=== PATIENT | male | born 1965 | race Caucasian/White ===

== ENCOUNTER 2023-09-11 11:23 | Emergency (ER) | payer OTHER ==
[~2023-09-11] VITALS: Ht 180.3 cm; Wt 83.9 kg
[~2023-09-11 11:23] MED LIST: CLINDAMYCIN HC300 MG PO
[2023-09-11] MEDS ORDERED: CEPHALEXIN500 M1 PO (13:49)
[2023-09-11] MEDS ORDERED: CEPHALEXIN 500 MG CAP PO ONE (13:50)
[2023-09-11] MEDS ORDERED: Acetaminophen/Hydrocodone 5 MG/325 MG TABLET PO ONE (13:50)
== END 2023-09-11 13:57 | disposition home or self-care (01) ==
LOC: ED 11:23
DX: S60.512A Abrasion of left hand, initial encounter (principal); S61.201A Unspecified open wound of left index finger without damage to nail, initial encounter; R60.0 Localized edema; F10.10 Alcohol abuse, uncomplicated; F14.10 Cocaine abuse, uncomplicated; F17.200 Nicotine dependence, unspecified, uncomplicated; F11.10 Opioid abuse, uncomplicated; W23.0XXA Caught, crushed, jammed, or pinched between moving objects, initial encounter; Y93.89 Activity, other specified; Y92.89 Other specified places as the place of occurrence of the external cause; Y99.0 Civilian activity done for income or pay